=== PATIENT | female | born 1945 | race Caucasian/White ===

== ENCOUNTER 2023-07-10 08:16 | Day surgery (SDC) | payer MEDICARE, SELFPAY ==
[2023-07-03 08:04] VITALS: BMI 17.8
[2023-07-10] VITALS (7 sets, daily range): BP systolic 135–163; BP diastolic 73–87; PULSE 54–88; RESP 16–20; TEMP 36.1–36.6; O2SAT 98–100; BMI 18.7
--- NOTE | 2023-07-10 09:28 | HO.ANESPROP2 ---
[facility] Past Medical History Medical History Degeneration of intervertebral disc of thoracic region Back pain Degenerative joint disease Orthostatic hypotension Low blood pressure Parkinson disease Adjustment disorder with mixed emotional features Depression Thyroid disease Surgical History Surgical History Hx of appendectomy Hx of tonsillectomy History of Problems with Anesthesia: No Social History Social History Patient Tobacco Use Status: Former Tobacco user Quit Date: 40 years Tobacco use type: Cigarette Use of substances other than those prescribed or required for medical reasons: No Are you DNR?: No Advance Directives: No Advance Directives Information Provided: Yes Meds Allergies Allergy/AdvReac Type Severity Reaction Status Date / Time Sulfa (Sulfonamide Allergy Rash Verified 07/03/23 07:43 Antibiotics) Home Medications ?Medication ?Instructions ?Recorded ?Confirmed ?Last Taken ?Type carbidopa 25 mg-levodopa 100 mg 1 tab PO QID 07/03/23 07/03/23 07/10/23 History tablet cholecalciferol (vitamin D3) 50 50 mcg PO DAILY 07/03/23 07/03/23 Unknown History mcg (2,000 unit) tablet (Vitamin D3) cyanocobalamin (vitamin B-12) 1,000 mcg sublingual DAILY 07/03/23 07/03/23 Unknown History 1,000 mcg sublingual tablet entacapone 200 mg tablet 200 mg PO QID 07/03/23 07/03/23 07/10/23 History ferrous gluconate 240 mg (27 mg 240 mg PO DAILY 07/03/23 07/03/23 Unknown History iron) tablet fludrocortisone 0.1 mg tablet 0.1 mg PO 5XD 07/03/23 07/03/23 07/10/23 History folic acid 400 mcg tablet 0.4 mg PO DAILY 07/03/23 07/03/23 Unknown History levothyroxine 100 mcg tablet 100 mcg PO DAILY 07/03/23 07/03/23 07/10/23 History midodrine 2.5 mg tablet 2.5 mg PO TID 07/03/23 07/03/23 07/10/23 History ondansetron 8 mg disintegrating 8 mg PO Q12H PRN Nausea And 07/03/23 07/03/23 Unknown History tablet Vomiting polyethylene glycol 3350 17 17 g PO DAILY 07/03/23 07/03/23 Unknown History gram/dose oral powder (Miralax) pyridostigmine bromide 60 mg tablet 60 mg PO TID 07/03/23 07/03/23 07/10/23 History Exam Height,Weight and Vital Signs: Height 5 ft 6 in Weight 52.617 kg Last Vital Signs Temp 96.9 F 07/10/23 09:23 Pulse 88 07/10/23 09:23 Resp 18 07/10/23 09:23 BP 163/87 H 07/10/23 09:23 Pulse Ox 98 07/10/23 09:23 O2 Del Method Room Air 07/10/23 09:23 Airway Mallampati Class: II (small mouth) TM Dist: >3cm Neck ROM: Full Partial: Lower Loose/Missing/Broken Teeth: Yes Heart: RRR Lungs: CTA Assessment and Plan Assessment Anesthesia Assessment: Anesthesia Plan Discussed and Chart Reviewed Final Anesthetic Review History of Problems with Anesthesia: No NPO: Yes ASA Class: III Final Preanesthetic Review: Meds/Allgs Chart Reviewed, Consent Obtained/Reviewed and Anes Risks/Benef Reviewed Patient Risk: Intermediate Procedure Risk: Low Anesthetic Plan Anesthetic Plan: GA Disposition: Standard PACU
--- NOTE | 2023-07-10 13:00 | PC.NURSE ---
Helped pt dress, sts is nauseated, pt laid down back in bed to rest longer
--- NOTE | 2023-07-10 13:01 | HO.OPHTHAL ---
Ophthalmology Operative Note Date of Service: 07/10/23 Narrative: Diagnosis exotropia. Procedure bilateral lateral rectus recessions of [address] Thurman. Anesthesia general. Complications none. The patient was brought to the operative room placed under general anesthesia. The eyes were prepped and draped in the usual sterile ophthalmic fashion. A lid speculum was placed in the right eye and a peritomy was created around the lateral rectus muscle. The muscle was hooked and secured with a double-armed Vicryl suture. It was then disinserted from the globe and reattached to position 4 mm behind the original insertion. Conjunctiva was closed with interrupted Vicryl sutures. An identical procedure was then performed the left eye. The patient was then awoken from general anesthesia and discharged to postoperative recovery in good condition.
--- NOTE | 2023-07-10 13:24 | PC.NURSE ---
Pt ambulated to bathroom via 1 assist and walker. Pt nauseated after, placed back in bed, anesthesia made aware
== END 2023-07-10 14:09 | disposition home or self-care (01) ==
PROVIDERS: Visit Provider Ophthalmology
PROC: (CPT 67311; principal; 2023-07-10 15:00)
DX: H53.2 Diplopia (principal); G20.A1 Parkinson's disease without dyskinesia, without mention of fluctuations; I95.1 Orthostatic hypotension; E03.9 Hypothyroidism, unspecified; M19.90 Unspecified osteoarthritis, unspecified site; F33.0 Major depressive disorder, recurrent, mild; Z79.52 Long term (current) use of systemic steroids; Z79.899 Other long term (current) drug therapy; Z88.2 Allergy status to sulfonamides; Z87.891 Personal history of nicotine dependence
CPT/HCPCS: 67311; J0131; J1100; J1596; J1885; J2405; J2704; J3010